=== PATIENT | female | born 1985 | race African-American/Black ===

== ENCOUNTER 2017-04-09 07:52 | Emergency (ER) | payer MEDICAID ==
[~2017-04-09] VITALS: Ht 167.6 cm; Wt 90.0 kg
[2017-04-09 10:05] LABS: CLARITY URINE CLOUDY (CLEAR); COLOR URINE YELLOW (YELLOW); GLUCOSE URINE NEGATIVE (NEGATIVE); KETONES URINE NEGATIVE (NEGATIVE); LEUKOCYTE ESTERASE URINE 1+ (NEGATIVE); NITRITE URINE NEGATIVE (NEGATIVE); OCCULT BLOOD URINE NEGATIVE (NEGATIVE); PROTEIN URINE NEGATIVE (NEGATIVE); SPECIFIC GRAVITY URINE 1.025 (1.005-1.030)
[2017-04-09 10:08] LABS: BASOPHILS % 0.5 % (0.0-2.0); DIFFERENTIAL COMMENT 0; EOSINOPHILS % 0.1 % (0.0-5.0); HEMATOCRIT. 36.4 % (36.0-48.0); HEMOGLOBIN. 11.7 g/dL (12.0-16.0); LYMPHOCYTES % 20.2 % (20.0-50.0); MEAN CORPUSCULAR HEMOGLOBIN 22.4 pg (28.0-32.0); MEAN CORPUSCULAR VOLUME 70.1 fL (81.0-99.0); MEAN PLATELET VOLUME 8.9 fl (7.4-10.4); MONOCYTES % 8.9 % (2.0-8.0); NEUTROPHILS % 70.3 % (40.0-76.0); PLATELET 231 x1000/uL (130-400); RED BLOOD CELL COUNT 5.19 mill/uL (4.2-5.4); RED CELL DISTRIBUTION WIDTH 16.3 % (11.6-14.6); WHITE BLOOD COUNT 9.6 x1000/uL (4.5-11.0)
[2017-04-09 10:13] LABS: CHLORIDE 105 mEq/L (98-107); INDEX HEMOLYSI 1 (1-3); INDEX ICTERIC 1 (1-4); INDEX LIPEMIC 1 (1-3)
[2017-04-09 10:17] LABS: PROTHROMBIN TIME 10.8 sec
[2017-04-09 10:22] LABS: ALANINE AMINOTRANSFERASE 27 IU/L (13-61); ALBUMIN 3.9 g/dL (3.4-5.0); ANION GAP 7; CALCIUM 8.6 mg/dL (8.5-10.1); CARBON DIOXIDE 30 mEq/L (21-32); LIPASE 125 IU/L (73-393); UREA NITROGEN BLOOD 8 mg/dL (7-21); eGFR > 60 mL/min (>60)
[2017-04-09 10:26] LABS: BACTERIA URINE TRACE; RBC URINE NONE SEEN /hpf (0-2); SQUAMOUS EPITHELIAL CELL URINE 3+ /lpf (RARE/1+)
[2017-04-09] MEDS ORDERED: CEFTRIAXONE SODIUM 250 MG/VIAL IM ONE (12:30)
[2017-04-09] MEDS ORDERED: LIDOCAINE HCL 1% 20ML VIAL (Pyxis) INJ INFIL ONE (12:30)
[2017-04-09 13:15] VITALS: BP 129/66
== END 2017-04-09 13:37 | disposition home or self-care (01) ==
LOC: ER 08:56
DX: N76.0 Acute vaginitis (principal)
CPT/HCPCS: 36415; 80053; 81001; 83690; 85025; 85610; 87210; 96372; 99284; J0696; J3490

== ENCOUNTER 2017-11-29 18:50 | Emergency (ER) | payer MEDICAID ==
[~2017-11-29] VITALS: Ht 167.6 cm; Wt 86.0 kg
[2017-11-29 19:00] VITALS: BP 117/73
== END 2017-11-29 23:42 | disposition left against medical advice (07) ==
LOC: ER 20:05
DX: J11.1 Influenza due to unidentified influenza virus with other respiratory manifestations (principal); Z53.21 Procedure and treatment not carried out due to patient leaving prior to being seen by health care provider

== ENCOUNTER 2019-01-29 19:28 | Emergency (ER) | payer MEDICAID ==
[~2019-01-29] VITALS: Ht 167.6 cm; Wt 86.1 kg
[2019-01-29] MEDS ORDERED: FLUORESCEIN SODIUM 1MG/STRIP RIGHTEYE ONE (21:45)
[2019-01-29] MEDS ORDERED: TETRACAINE 0.5% OPHTH DROPS 4ML RIGHTEYE ONE (21:45)
[2019-01-29 22:32] VITALS: BP 123/82
== END 2019-01-29 22:36 | disposition home or self-care (01) ==
LOC: ER 19:28
DX: H10.021 Other mucopurulent conjunctivitis, right eye (principal)
CPT/HCPCS: 99283

== ENCOUNTER 2019-03-23 07:43 | Emergency (ER) | payer MEDICAID ==
[~2019-03-23] VITALS: Ht 167.6 cm; Wt 86.0 kg
[2019-03-23] MEDS ORDERED: BACITRACIN ZINC OINT UDPKT TOP ONE (08:45)
[2019-03-23] MEDS ORDERED: IBUPROFEN 600MG TABLET PO ONE (08:45)
[2019-03-23 09:03] VITALS: BP 122/89
== END 2019-03-23 11:07 | disposition home or self-care (01) ==
LOC: ER 08:00
DX: L03.011 Cellulitis of right finger (principal)
CPT/HCPCS: 10060; 99283; A4217; Z7610

== ENCOUNTER 2019-03-26 11:08 | Emergency (ER) | payer MEDICAID ==
[~2019-03-26] VITALS: Ht 167.6 cm; Wt 86.0 kg
[2019-03-26] MEDS ORDERED: LIDOCAINE HCL 1% 20ML VIAL (Pyxis) INJ INFIL ONE (12:45)
[2019-03-26] MEDS ORDERED: BACITRACIN ZINC OINT UDPKT TOP ONE (13:15)
[2019-03-26] MEDS ORDERED: IBUPROFEN 600MG TABLET PO ONE (13:15)
[2019-03-26 13:38] VITALS: BP 131/81
== END 2019-03-26 13:50 | disposition home or self-care (01) ==
LOC: ER 11:08
DX: Z48.01 Encounter for change or removal of surgical wound dressing (principal); M79.644 Pain in right finger(s)
CPT/HCPCS: 10060; 99283; J3490

== ENCOUNTER 2019-03-29 08:53 | Emergency (ER) | payer MEDICAID ==
[~2019-03-29] VITALS: Ht 167.6 cm; Wt 86.0 kg
[2019-03-29 11:45] VITALS: BP 112/78
== END 2019-03-29 11:48 | disposition home or self-care (01) ==
LOC: ER 08:53
DX: Z48.00 Encounter for change or removal of nonsurgical wound dressing (principal)
CPT/HCPCS: 99281